=== PATIENT | female | born 1955 | race Caucasian/White ===

== ENCOUNTER 2021-04-11 11:30 | Day surgery (SDC) | payer BC ==
[2021-04-09 14:52] VITALS: BMI 19.0
[~2021-04-11 11:30] MED LIST: Bupivacaine PF 0.5% 30 ML VIAL ONE; EPINEPHrine 1 MG/ML AMP ONE; Lidocaine 1% MPF 2 ML VIAL ONE
[2021-04-11] MEDS ORDERED: PROPOFOL 20 ML ONE (11:53)
[2021-04-11] MEDS ORDERED: Midazolam HCl 2 mg/2 ml Vial ONE (11:53)
[2021-04-11] MEDS ORDERED: Fentanyl 100 MCG/2 ML VIAL ONE (11:53)
[2021-04-11] MEDS ORDERED: Dexamethasone 4 mg/ml Vial ONE (11:54)
[2021-04-11] MEDS ORDERED: Rocuronium Bromide 10 MG/ML (10ML VIAL) ONE (11:54)
[2021-04-11] MEDS ORDERED: Ketorolac Tromethamine 30 MG/ML VIAL ONE (11:54)
[2021-04-11] MEDS ORDERED: Lidocaine 1% PF 5 ML VIAL ONE (11:54)
[2021-04-11] MEDS ORDERED: Glycopyrrolate 0.2 MG/ML 5 ML SYRINGE ONE (11:54)
[2021-04-11] MEDS ORDERED: Ondansetron PF 4 MG/2 ML Vial ONE (11:54)
[2021-04-11] MEDS ORDERED: HYDROcodone/Acetaminophen 5/325 mg Tablet PO PRN (13:01)
[2021-04-11] MEDS ORDERED: Morphine 4 MG/ML VIAL ONE ×2 (13:03→13:05)
[2021-04-11] MEDS ORDERED: Meperidine HCl/PF 25 MG/ML VIAL ONE (13:12)
== END 2021-04-11 16:23 | disposition home or self-care (01) ==
LOC: CSHSDC 11:30
PROVIDERS: ATTEND Surgery
PROC: 0FT44ZZ Resection of Gallbladder, Percutaneous Endoscopic Approach (ICD-10-PCS; principal; 2021-04-11)
DX: K80.10 Calculus of gallbladder with chronic cholecystitis without obstruction (principal); Z79.899 Other long term (current) drug therapy; E78.00 Pure hypercholesterolemia, unspecified
CPT/HCPCS: 88304; J0171; J0690; J1100; J1885; J2175; J2250; J2270; J2405; J2704; J3010; S0020